=== PATIENT | male | born 1955 | race Caucasian/White ===

== ENCOUNTER → 2017-07-13 | Outpatient (CLI) | payer OTHER ==
[~2017-07-13] MED LIST: ASPIRIN EC81 M1 PO; ATACAND8 MG PO; ATENOLOL 100MG100 M2 PO; ATENOLOL 50MG T50 M1 PO; AVAPRO 150 MG150 M1 PO; BACTROBAN CREAM30 G1 NASAL; BETASEPT 4% SU120 M1 TOP; BUPROPION HCL PO; CANDESARTAN CIL16 MG PO; CELEXA40 MG PO; CLARITIN10 MG PO; DELTA D3400 UNIT PO; DEPO-TESTO100 MG/1 M IM; DEPO-TESTO200 MG/1 M IM; FERREX 150150 MG PO; FISH OIL + D31 EACH PO; FLOMAX0.4 MG PO; GLUCOPHAGE500 MG PO; GLUMETZA500 PO; HYDROCHLOROTHIA25 M1 PO; HYDROCODON-ACE1 EAC7 PO; IMDUR 30 MG TAB30 M1 PO; IRON325 PO; LIPITOR40 MG PO; METFORMIN HCL500 MG PO; METHYLIN 10 MG10 MG PO; MOM PO; NITROGLYCERIN0.4 MG SUBLING; PERCOCET 5-3251 EACH PO; PROTONIX40 M2 PO; PROTOPIC OINTME30 GM TP; RITALIN10 MG PO; SENOKOT-S1 TA1 PO; SIMVASTATIN40 MG PO; TAMSULOSIN HCL0.4 M1 PO; UNICOMPLEX M TA1 TA1 PO; VITAMIN D400 UNI1 PO; WELLBUTRIN 100100 MG PO; WELLBUTRIN SR200 MG PO; XANAX 0.25 MG0.25 MG PO
--- NOTE | ~2017-07-13 | CNG ---
[facility] [place] [address] CYTO-NONGYN REPORT PROCEDURE Name: KWAN HAYDEN Room #: REG [facility].#: [id number] Admission: 07/13/17 Date of : 53 Discharge: Report #: [id number] Path Case #: [id number] CYTOPATHOLOGY REPORT COLLECTION DATE: 07/13/2017 RECEIVED DATE: 07/13/2017 SUBMITTING PHYS: Dr. Damon Abarca OTHER PHYS: Dr. Gian Sanders CLINICAL HISTORY: Thyroid nodule Right and Left. SPECIMEN(S) RECEIVED: A.US gudied Fine needle aspiration, Right thyroid B.US gudied Fine needle aspiration, Left thyroid * * * * * * * * * * * * FINAL DIAGNOSIS: A. Thyroid, right, US gudied Fine needle aspiration: BETHESDA CATEGORY II. SPECIMEN CONSISTS OF FOLLICULAR CELLS, COLLOID, AND BLOOD, FAVOR AN ADENOMATOID COLLOID NODULE. B. Thyroid, left, US gudied Fine needle aspiration: BETHESDA CATEGORY II. SPECIMEN CONSISTS OF FOLLICULAR CELLS, COLLOID, AND BLOOD FAVOR AN ADENOMATOID COLLOID NODULE. COMMENT: Examination shows abundant macrofollicles along with dense colloid. Nuclear features of papillary thyroid carcinoma are not identified. Findings are most suggestive of adenomatoid nodules in both samples. Nature of the sample precludes evaluation for follicular carcinoma. Please note samples represent minute portion of a larger lesion and may not be registered representative. Correlate clinically and follow up as indicated. (IUV; 07/14/17) PATHOLOGIST: Estrella Chowdhury M.D. REPORT ELECTRONICALLY SIGNED BY: Estrella Chowdhury M.D. DATE/TIME: 07/14/2017 15:31 * * * * * * * * * * * * GROSS PATHOLOGY: A. gudied Fine needle aspiration, Right thyroid: The specimen is labeled "Jackelyn Kwan Bernal" and consists of three fixed slides, three air dried slides. Twenty mL of clear colorless fluid in fixative from the needle rinse is also submitted and one ThinPrep slide and a cell block were prepared from this material. Also received is the RNARetain vial labeled Right thyroid which will be held for molecular studies if needed. B. gudied Fine needle aspiration, Left thyroid: The specimen is [address] [address] CYTO-NONGYN REPORT PROCEDURE Name: JACKELYNKWANBASSEM BERNAL [id number]: 07[facility]17 Date of : 53 Discharge: Report #: [id number] Path Case #: [id number] labeled "Jackelyn Kwanbassem Bernal" and consists of three fixed slides, three air dried slides. Twenty mL of clear pink fluid in fixative from the needle rinse is also submitted and one ThinPrep slide and a cell block were prepared from this material. (clt 07.13.2017) Also received is the RNARetain vial labeled with Left Thyroid which will be held for molecular studies if needed. HEMOTHERAPIST(S): TADEO Green([facility]) INITIAL CPT CODE(S): A; 86906, 64733 B; 86768, 27209 Professional services performed by [facility] at [facility] [address] [place] [address] Technical services performed by [facility] at [address] [place] [address]., [address], [place] [address]. [facility] [address] [place] [address], [address] [place] [address] PHONE: [phone] DIRECTOR: Yoni Armendariz M.D. * * * END OF REPORT * * *
== END | disposition home or self-care (01) ==
LOC: ULTRA 09:05
DX: D34 Benign neoplasm of thyroid gland (principal); Z79.82 Long term (current) use of aspirin; Z79.899 Other long term (current) drug therapy

== ENCOUNTER → 2020-04-08 | Outpatient (CLI) | payer OTHER | LOC: SJCVCIMAG 09:56 | DX: E11.9 Type 2 diabetes mellitus without complications (principal); I25.10 Atherosclerotic heart disease of native coronary artery without angina pectoris; G47.33 Obstructive sleep apnea (adult) (pediatric); I10 Essential (primary) hypertension; I65.29 Occlusion and stenosis of unspecified carotid artery; R06.02 Shortness of breath; Z95.1 Presence of aortocoronary bypass graft; Z85.850 Personal history of malignant neoplasm of thyroid; Z87.891 Personal history of nicotine dependence ==

== ENCOUNTER → 2020-12-29 | Outpatient (CLI) | payer OTHER | LOC: SJCVC 10:42 | PROVIDERS: ATTEND Internal Medicine Cardiovascular Disease | DX: R94.31 Abnormal electrocardiogram [ECG] [EKG] (principal); I25.810 Atherosclerosis of coronary artery bypass graft(s) without angina pectoris; I10 Essential (primary) hypertension; E78.00 Pure hypercholesterolemia, unspecified; E11.9 Type 2 diabetes mellitus without complications; N20.0 Calculus of kidney; E78.5 Hyperlipidemia, unspecified; G47.33 Obstructive sleep apnea (adult) (pediatric); Z95.1 Presence of aortocoronary bypass graft; Z01.818 Encounter for other preprocedural examination; Z87.891 Personal history of nicotine dependence; Z72.89 Other problems related to lifestyle; Z79.84 Long term (current) use of oral hypoglycemic drugs; Z79.899 Other long term (current) drug therapy ==

== ENCOUNTER → 2021-04-10 | Outpatient (CLI) | payer OTHER | LOC: SJCVCIMAG 10:44 | PROVIDERS: ATTEND Internal Medicine Cardiovascular Disease | DX: I49.1 Atrial premature depolarization (principal); I25.10 Atherosclerotic heart disease of native coronary artery without angina pectoris; E11.9 Type 2 diabetes mellitus without complications; G47.33 Obstructive sleep apnea (adult) (pediatric); R06.09 Other forms of dyspnea; R11.0 Nausea; R53.1 Weakness; Z95.1 Presence of aortocoronary bypass graft ==